=== PATIENT | female | born 1945 | race Caucasian/White ===

== ENCOUNTER 2016-12-20 12:40 | Emergency (ER) | payer MEDICARE, OTHER ==
[~2016-12-20] VITALS: Ht 162.6 cm; Wt 99.5 kg
[2016-12-20] MEDS ORDERED: LISI10TA4 PO (12:56)
[2016-12-20] MEDS ORDERED: ARMO90TA PO (12:56)
[2016-12-20] MEDS ORDERED: ASPI1TAB PO (12:56)
[2016-12-20 14:21] LABS: BASO % 0.9 % (0.0-1.0); EOS # 0.1 K/mm3 (0.0-0.50); EOS % 1.8 % (0.0-3.0); LARGE UNSTAINED CELL # 0.1 K/mm3 (0.0-0.4); LARGE UNSTAINED CELL % 2.6 % (0.0-4.0); LYMPH # 1.6 K/mm3 (1.5-4.5); LYMPH % 27.8 % (24.0-44.0); MEAN CORPUSCULAR HEMOGLOBIN 31.4 pg (27.0-33.0); MEAN CORPUSCULAR HGB CONC 33.5 g/dl (32.0-36.5); MEAN CORPUSCULAR VOLUME 93.8 fl (80.0-96.0); MONO # 0.4 K/mm3 (0.0-0.8); MONO % 8.1 % (0.0-5.0); NEUTROPHILS # 3.2 K/mm3 (1.8-7.7); NEUTROPHILS % 58.8 % (36.0-66.0); PLATELET COUNT, AUTOMATED 205 k/mm3 (150-450); RED CELL DISTRIBUTION WIDTH 14.2 % (11.5-14.5); WHITE BLOOD COUNT 5.4 K/mm3 (4.0-10.0)
[2016-12-20 14:32] LABS: CALCIUM LEVEL 8.9 MG/DL (8.8-10.2); CREATININE FOR GFR 1.03 MG/DL (0.55-1.02); GLOMERULAR FILTRATION RATE 56.6 (>45); POTASSIUM SERUM 3.7 MEQ/L (3.5-5.1)
--- NOTE | 2016-12-20 15:08 | REP ---
LUMBAR SPINE, FIVE VIEWS: HISTORY: Back pain. There is no acute fracture or subluxation. The intervertebral discs are decreased in height. Vacuum phenomenon is present at the L3-4 through L5-S1 levels. These findings are consistent with disc degeneration. Osteophytes are present throughout the lumbar spine. There is narrowing of the L4-5 and L5-S1 facet joints. An L4-5 laminectomy defect is present. There is minimal scoliosis convex to the left. IMPRESSION: Degenerative change as described above. Signed by Pantera Farrell MD 12/20/2016 03:19 P
--- NOTE | 2016-12-20 15:38 | REP ---
NON-OB PELVIC ULTRASOUND: HISTORY: Pelvic pressure. The uterus measures 4.8 cm in transverse x 2.9 cm in AP x 6.4 cm in cephalocaudal dimensions. The endometrium is minimally thickened measuring 8.1 mm. Two fibroids are present in the uterus. The fibroids measure 8.2 x 6.8 mm and 2.1 x 1.6 x 1.2 cm. The right ovary measures 1.3 x 1.1 x 1.3 cm. The patient is status post left oophorectomy. There is no fluid in the cul-de-sac. There are no filling defects in the urinary bladder. IMPRESSION: 1. Fibroid uterus. 2. The endometrium is minimally thickened measuring 8.1 mm. 3. The patient is status post left oophorectomy. Signed by Pantera Farrell MD 12/20/2016 03:44 P
--- NOTE | 2016-12-20 16:23 | REP ---
MRI LUMBAR SPINE WITHOUT CONTRAST: HISTORY: Back pain. Decreased signal intensity on T2-weighted images is present in the lumbar intervertebral discs. The L2-3 through L5-S1 intervertebral discs are decreased in height. These findings are consistent with disc degeneration. A diffuse disc bulge is present at the L1-2 level. There is an increase in the amount of epidural fat. There is minimal compression of the thecal sac. There is hypertrophy of the posterior articulating facets. The L1 nerves exit the neural foramina without compression. A diffuse disc bulge is present at the L2-3 level. There is an increase in the amount of the epidural fat. There is minimal compression of the thecal sac. There is hypertrophy of the posterior articulating facets. The L2 nerves exit the neural foramina without compression. A diffuse disc bulge is present at the L3-4 level. There is an increase in the amount of epidural fat. There is mild compression of the thecal sac. There is hypertrophy of the posterior articulating facets. The L3 nerves exit the neural foramina without compression. A diffuse disc bulge and small disc protrusion central and eccentric to the right are present at the L4-5 level. There is hypertrophy of the ligamenta flava and posterior articulating facets. These findings produce mild central canal stenosis. The L4 nerves exit the neural foramina without compression. A diffuse disc bulge is present at the L5-S1 level. There is no thecal sac compression. There is hypertrophy of the posterior articulating facets. The L5 nerves exit the neural foramina without compression. A laminectomy defect is present. The conus medullaris is normal in appearance terminating at the level of the L1-2 intervertebral disc. Normal signal intensity is present in the lumbar vertebral bodies. IMPRESSION: 1. Diffuse disc bulge and epidural lipomatosis at the L1-2 and L2-3 levels with minimal thecal sac compression. 2. Diffuse disc bulge and epidural lipomatosis at the L3-4 level with mild thecal sac compression. 3. Mild central canal stenosis at the L4-5 level secondary to disc bulge, disc protrusion, ligamentous and facet hypertrophy. 4. Diffuse disc bulge at the L5-S1 level without thecal sac or nerve compression. A laminectomy defect is present. Signed by Pantera Farrell MD 12/20/2016 04:33 P
[2016-12-20] MEDS ORDERED: MEDR4PAK PO (17:26)
[2016-12-20 17:41] VITALS: BP 164/98
--- NOTE | 2016-12-21 08:50 | ED PDOC ---
Post-Departure Follow-Up radiology report faxed to Anastasia Carbajal MD Dec 21, 2016 08:50
--- NOTE | 2016-12-21 08:52 | ED PDOC ---
Post-Departure Follow-Up certified letter sent regarding U/S report Anastasia Fan MD Dec 21, 2016 08:52
== END 2016-12-20 17:59 | disposition home or self-care (01) ==
LOC: M ED 14:29
DX: M54.5 Low back pain (principal); G89.29 Other chronic pain; I10 Essential (primary) hypertension; E07.9 Disorder of thyroid, unspecified; Z79.899 Other long term (current) drug therapy; Z79.82 Long term (current) use of aspirin; Z91.040 Latex allergy status